=== PATIENT | female | born 1930 | race Caucasian/White ===

== ENCOUNTER → 2017-10-01 | Outpatient (CLI) | payer MEDICARE ==
[~2017-10-01] MED LIST: ASPI81TA82 PO; ATOR10 PO; LEVO.025 PO; LOSA100T PO; METO25 PO
== END ==
LOC: HRSP 12:18
PROVIDERS: ATTEND Family Medicine
DX: R06.02 Shortness of breath (principal); R53.83 Other fatigue; I21.4 Non-ST elevation (NSTEMI) myocardial infarction
CPT/HCPCS: 94060; 94726; 94729